=== PATIENT | male | born 1945 | race Caucasian/White ===

== ENCOUNTER 2023-01-03 14:14 | Outpatient (CLI) | payer OTHER, SELFPAY | END 2023-01-03 14:15 | disposition home or self-care (01) | PROVIDERS: PCP Family Medicine; Visit Provider Nurse Practitioner | DX: C61 Malignant neoplasm of prostate (principal) | CPT/HCPCS: 72195 ==

== ENCOUNTER 2023-03-29 09:00 | Outpatient (RCR) | payer OTHER, SELFPAY ==
--- NOTE | 2022-12-28 10:37 | URNOTE ---
Request received for authorization for [employer] ([id number]). Prior authorization is not required, patient carries [employer], per Avail[employer] prior authorization is not required record #[id number].
[2023-01-03 14:07] VITALS: BP 154/91; PULSE 55; RESP 16; TEMP 36.3; O2SAT 98
[2023-01-03] MEDS: LEUPROLIDE ACETATE 22.5 MG (SQ) SYRINGE SUBCUT (14:28)
--- NOTE | 2023-01-30 15:55 | ONC.NURNOTE ---
Dx: prostate cancer
[2023-03-29 09:00] VITALS: BP 128/60; PULSE 53; RESP 15; TEMP 35.5; O2SAT 99
[2023-03-29 11:20] LABS: PSA Diagnostic* < 0.06 ng/mL (0.10-4.00)
--- NOTE | 2023-03-29 13:46 | ONC.NURNOTE ---
states does alot of walking and at times lt lat. leg aches. no reddness, open areas or lumps seen. encouraged him to follow up with his primary. states dilma isbell well. states only a few hot flashes.
[2023-03-31 00:22] LABS: Testosterone, Adult Male <3 ng/dL (300-720)
== END 2023-07-02 23:59 | disposition home or self-care (01) ==
LOC: CCIC 09:00
PROVIDERS: PCP Family Medicine; Visit Provider Internal Medicine
DX: C61 Malignant neoplasm of prostate (principal)
CPT/HCPCS: 36415; 84153; 84403; 96401; J9217